=== PATIENT | male | born 1945 | race Caucasian/White ===

== ENCOUNTER 2018-01-20 05:59 | Outpatient (CLI) | payer MEDICARE, OTHER ==
[~2018-01-20] VITALS: Ht 190.5 cm; Wt 115.2 kg
[2018-01-20] MEDS ORDERED: MELO15TA39 PO (15:56)
[2018-01-20] MEDS ORDERED: METO-370 PO (15:56)
[2018-01-20] MEDS ORDERED: ASPI-999 PO (15:56)
[2018-01-20] MEDS ORDERED: CANA300T PO (15:56)
[2018-01-20] MEDS ORDERED: LIPA1CAP2 PO (15:56)
[2018-01-20] MEDS ORDERED: MULT-228 PO (15:56)
[2018-01-20] MEDS ORDERED: MULT-517 PO (15:56)
[2018-01-20] MEDS ORDERED: FLUC150T2 PO (15:56)
[2018-01-20] MEDS ORDERED: METF500T5 PO (15:56)
[2018-01-20] MEDS ORDERED: INSU100V5 SQ (15:56)
[2018-01-20] MEDS ORDERED: MAGN500C15 PO (15:56)
[2018-01-20] MEDS ORDERED: SITA100T12 PO (15:56)
[2018-01-20] MEDS ORDERED: CYAN1TAB26 PO (15:56)
[2018-01-20] MEDS ORDERED: NIAC500T24 PO (15:56)
[2018-01-20] MEDS ORDERED: INSU100V31 IJ (15:56)
== END 2018-01-20 16:15 ==
LOC: PREOP 05:59
PROVIDERS: ATTEND Urology
DX: Z01.818 Encounter for other preprocedural examination (principal)

== ENCOUNTER 2018-01-22 06:25 | Day surgery (SDC) | payer MEDICARE, OTHER ==
[~2018-01-22] VITALS: Ht 190.5 cm; Wt 115.2 kg
[~2018-01-22 06:25] MED LIST: ASPI-999 PO; CANA300T PO; CYAN1TAB26 PO; FLUC150T2 PO; INSU100V31 IJ; INSU100V5 SQ; LIPA1CAP2 PO; MAGN500C15 PO; MELO15TA39 PO; METF500T5 PO; METO-370 PO; MULT-228 PO; MULT-517 PO; NIAC500T24 PO; SITA100T12 PO
[2018-01-22 06:50] VITALS: BP 127/88
--- NOTE | 2018-01-22 06:52 | Progress Note-Pre Operative ---
Pre-Operative Progress Note H&P Reviewed The H&P was reviewed, patient examined and no changes noted. Date Seen by Provider: January 22, 2018 Time Seen by Provider: 06:51 Date H&P Reviewed: January 22, 2018 Time H&P Reviewed: 06:51 Pre-Operative Diagnosis: BPH WITH PROSTATISM REFRACTORY TO MEDICAL TREATMENT HERMELINDA MAKI MD January 22, 2018 6:52 am
[2018-01-22] MEDS ORDERED: cefTRIAXone 1 GM (ROCEPHIN) VIAL ONE (06:55)
[2018-01-22] MEDS ORDERED: NS (IVPB) 50 ML ONE (06:55)
[2018-01-22] MEDS ORDERED: CATHETER FLUSH 10 ML SYR IV PRN (07:15)
[2018-01-22] MEDS ORDERED: cefTRIAXone INJECTION 1,000 MG in NS (IVPB) 50 ML IV ONE (07:15)
[2018-01-22] MEDS: LACTATED RINGERS 1,000 ML IV PRN ×2 (07:16→08:23)
[2018-01-22 07:19] LABS: BASOPHILS % (AUTO) 0 % (0-10); EOSINOPHILS # (AUTO) 0.3 10^3/uL (0.0-0.3); EOSINOPHILS % (AUTO) 6 % (0-10); HEMATOCRIT 42 % (40-54); HEMOGLOBIN 14.1 G/DL (13.3-17.7); LYMPHOCYTES # (AUTO) 0.7 X 10^3 (1.0-4.0); LYMPHOCYTES % (AUTO) 13 % (12-44); MEAN CORPUSCULAR HEMOGLOBIN 31 PG (25-34); MEAN CORPUSCULAR HGB CONC 34 G/DL (32-36); MEAN CORPUSCULAR VOLUME 93 FL (80-99); MEAN PLATELET VOLUME 10.2 FL (7.4-10.4); MONOCYTES # (AUTO) 0.7 X 10^3 (0.0-1.0); MONOCYTES % (AUTO) 13 % (0-12); NEUTROPHILS # (AUTO) 3.6 X 10^3 (1.8-7.8); NEUTROPHILS % (AUTO) 68 % (42-75); PLATELET COUNT 130 10^3/uL (130-400); RED BLOOD COUNT 4.49 10^6/uL (4.35-5.85); RED CELL DISTRIBUTION WIDTH 16.1 % (10.0-14.5); WHITE BLOOD COUNT 5.3 10^3/uL (4.3-11.0)
[2018-01-22] MEDS ORDERED: BUPIVACAINE SPINAL 0.75% (SENSORCAINE) 2 ML AMP ONE (08:08)
[2018-01-22] MEDS ORDERED: fentaNYL INJECTION 100 MCG/2 ML AMP ONE (08:12)
[2018-01-22] MEDS ORDERED: proPOfol 200 MG/20 ML (DIPRIVAN) VIAL IV ONE (08:12)
[2018-01-22] MEDS ORDERED: MIDAZOLAM 2 MG/2 ML (VERSED) VIAL ONE (08:12)
[2018-01-22] MEDS ORDERED: LIDOCAINE PF 2% 5 ML (XYLOCAINE) VIAL ONE (08:18)
[2018-01-22] MEDS ORDERED: PHENYLEPHRINE 100 MCG/ML 10 ML (ANESTHESIA) SYR ONE (09:19)
--- NOTE | 2018-01-22 09:26 | Progress Note-Post Operative ---
Post-Operative Progess Note Surgeon (s)/Boat Ride Operator (s) Surgeon HERMELINDA MAKI MD Boat Ride Operator: N/A Pre-Operative Diagnosis BPH WITH PROSTATISM REFRACTORY TO MEDICAL TREATMENT Post-Operative Diagnosis SAME Procedure & Operative Findings Date of Procedure 01/22/18 Procedure Performed/Findings TURP Anesthesia Type SPINAL Estimated Blood Loss Estimated blood loss (mL): 75CC Specimens/Packing Specimens Removed PROSTATE CHIPS Packing: N/A HERMELINDA MAKI MD January 22, 2018 9:26 am
[2018-01-22] MEDS ORDERED: MILK OF MAGNESIA 400 MG/5 ML 30 ML UDC PO PRN (09:30)
[2018-01-22] MEDS ORDERED: ZOLPIDEM 5 MG (AMBIEN) TAB PO PRN (09:30)
[2018-01-22] MEDS ORDERED: BELLADONNA ALK/OPIUM (B & O) 30 MG SUPP PR PRN (09:30)
[2018-01-22] MEDS ORDERED: ONDANSETRON 4 MG/2 ML (SDV) Z0FRAN IVP PRN (09:45)
[2018-01-22] MEDS ORDERED: HYDROmorphone 1 MG/ML (DILAUDID) 1 ML SYRINGE IV PRN (09:45)
[2018-01-22] MEDS: LACTATED RINGERS 1,000 ML IV SCH ×4 (11:04→20:16)
[2018-01-22 12:00] VITALS: BP 116/60
--- NOTE | 2018-01-22 13:40 | Anesthesia-General Post-Op ---
General Patient Condition Mental Status/LOC: Same as Preop Cardiovascular: Satisfactory Nausea/Vomiting: Absent Respiratory: Satisfactory Pain: Controlled Complications: Absent Post Op Complications Complications None Follow Up Care/Instructions Patient Instructions None needed. Anesthesia/Patient Condition Patient Condition Patient is doing well, no complaints, stable vital signs, no apparent adverse anesthesia problems. No complications reported per nursing. MARK HAMILTON CRNA January 22, 2018 13:40
--- NOTE | 2018-01-22 13:42 | Anesthesia-Regional Post-Op ---
Regional Patient Condition Mental Status: Alert, Oriented x3 Circulation: Same as Pre-Op Headache: Absent Sensation: Full Recovery Motor Block: Absent Post Op Complications Complications None Follow Up Care/Instructions Patient Instructions None needed. Anesthesia/Patient Condition Patient is doing well, no complaints, stable vital signs, no apparent adverse anesthesia problems. No complications reported per nursing. MARK HAMILTON CRNA January 22, 2018 13:42
[2018-01-22] MEDS ORDERED: CYAN10006 PO (14:18)
[2018-01-22] MEDS ORDERED: FA/M1TAB29 PO (14:18)
[2018-01-22] MEDS ORDERED: PEDI18TA2 PO (14:18)
[2018-01-22] MEDS ORDERED: METO50TA15 PO (14:18)
[2018-01-22] MEDS ORDERED: INSU100I14 SQ (14:18)
[2018-01-22] MEDS ORDERED: NIAC1CAP PO (14:18)
[2018-01-22] MEDS ORDERED: ASPI-808 PO (14:18)
[2018-01-22] MEDS ORDERED: METF-760 PO (14:18)
[2018-01-22] MEDS ORDERED: CREON PO (14:18)
[2018-01-22] MEDS ORDERED: PATIENT MAY USE OWN MEDS, ALL MC SCH (15:30)
[2018-01-22] MEDS ORDERED: INSULIN ASPART SQ SCH (16:00)
[2018-01-22 16:16] VITALS: BP 100/59
[2018-01-22] MEDS: metFORMIN XR 500 MG (GLUCOPHAGE XR) TAB PO SCH (17:42)
--- NOTE | 2018-01-22 18:07 | OPERATIVE REPORT ---
DATE OF SERVICE: 01/22/2018 PREOPERATIVE DIAGNOSIS: Benign prostatic hypertrophy, refractory to medical treatment. POSTOPERATIVE DIAGNOSIS: Benign prostatic hypertrophy, refractory to medical treatment. OPERATION PERFORMED: Transurethral resection of the prostate. SURGEON: Hermelinda Maki MD ANESTHESIA: Spinal. COMPLICATIONS: None. DESCRIPTION OF PROCEDURE: Under satisfactory spinal anesthesia, the patient in lithotomy position, genitalia were prepped and draped in usual sterile fashion. Urethra was dilated with Bjorn sound to accommodate the 25-Occitan Petersen resectoscope. Again visualized the trilobar enlargement of the prostate with bladder neck obstruction and trabeculation. I first resected the median lobe. I leveled this completely to the level of the veru. Then, I resected the roof from 1 to 11 o'clock position and then the lateral lobe and finally, the apical tissue. Bleeders were cauterized as the resection was proceeding. The capsule was visualized at many points as hemostasis was adequate. Resection was satisfactory. Cystoscopy confirmed intact ____ ureteric orifices. Veru and sphincter with good reflux. Prostatic chips were evacuated. The resectoscope was removed and a 22 3-way 30 mL balloon catheter was inserted in the bladder, the balloon inflated to 30 mL, connected to continuous bladder irrigation with return of which was clear on traction. Estimated blood loss was 75 mL, none of which was replaced. The patient tolerated the procedure and anesthesia well and was sent to recovery room in stable condition. Job ID: [id number] DocumentID: [id number] Dictated Date: 01/22/2018 09:34:29 Loss Prevention/Safety District Manager Date: 01/22/2018 18:06:51 Dictated By: HERMELINDA MAKI MD
[2018-01-22 20:00] VITALS: BP 108/66
[2018-01-22] MEDS: DOCUSATE SODIUM 100 MG (COLACE) CAP PO SCH (20:59)
[2018-01-22] MEDS ORDERED: NON-FORMULARY MEDICATION 1 EA EA (Metformin HCl (Metformin HCl ER) 1,000 MG) PO SCH (21:00)
[2018-01-22] MEDS ORDERED: NON-FORMULARY MEDICATION 1 EA EA (Metoprolol Tartrate 50 MG) PO SCH (21:00)
[2018-01-22] MEDS ORDERED: inSUlin DETERMIR 1 UNIT/0.01 ML (LEVEMIR) CHARGE PER UNIT SQ SCH (21:00)
[2018-01-22] MEDS ORDERED: NON-FORMULARY MEDICATION 1 EA EA (Meloxicam 15 MG) PO SCH (21:00)
[2018-01-22] MEDS ORDERED: MELOXICAM 15 MG TAB PO SCH (21:00)
[2018-01-22] MEDS ORDERED: inSUlin DETERMIR 1000 UNITS/10 ML VIAL (LEVEMIR) SQ SCH (21:00)
[2018-01-22] MEDS: meTOprolol TARTRATE 50 MG (LOPRESSOR) TAB PO SCH (21:13)
[2018-01-23] VITALS: BP 117/63
[2018-01-23 05:00] VITALS: BP 106/71
[2018-01-23] MEDS: inSUlin ASPART (NovoLOG) 1 UNIT/0.01 ML (CHARGE PER UNIT) SC SCH ×2 (05:17→11:21)
[2018-01-23] MEDS: metFORMIN XR 500 MG (GLUCOPHAGE XR) TAB PO SCH (05:17)
[2018-01-23] MEDS ORDERED: MULTIVIT W/MINERALS TAB (THERAGRAN M) PO SCH (07:00)
[2018-01-23 08:00] VITALS: BP 98/50
[2018-01-23] MEDS ORDERED: MAGNESIUM OXIDE (MAG-OX)400 MG TAB PO SCH (08:00)
[2018-01-23] MEDS: DOCUSATE SODIUM 100 MG (COLACE) CAP PO SCH (08:30)
[2018-01-23] MEDS: meTOprolol TARTRATE 50 MG (LOPRESSOR) TAB PO SCH (08:30)
[2018-01-23] MEDS ORDERED: [UNRECOGNIZED DRUG - OTHER] PO SCH (09:00)
[2018-01-23] MEDS ORDERED: CYANOCOBALAMIN 1,000 MCG (VITAMIN B-12) TABLET PO SCH (09:00)
[2018-01-23] MEDS ORDERED: NON-FORMULARY MEDICATION 1 EA EA (Magnesium Oxide (Magnesium) 500 MG) PO SCH (09:00)
[2018-01-23] MEDS ORDERED: CREON PO SCH (09:00)
[2018-01-23] MEDS ORDERED: NON-FORMULARY MEDICATION 1 EA EA (Sitagliptin Phosphate (Januvia) 100 MG) PO SCH (09:00)
[2018-01-23] MEDS ORDERED: NON-FORMULARY MEDICATION 1 EA EA (Pedi Mv No.79/Ferrous Fumarate (Flintstones with Iron Ta PO SCH (09:00)
[2018-01-23] MEDS ORDERED: LINAGLIPTIN (TRADJENTA) 5 MG TABLET PO SCH (09:00)
[2018-01-23] MEDS ORDERED: NON-FORMULARY MEDICATION 1 EA EA (Canagliflozin (Invokana) 300 MG) PO SCH (09:00)
[2018-01-23] MEDS ORDERED: LEVOFLOXACIN 500 MG/100 ML IV 100 ML IV ONE (09:30)
[2018-01-23] MEDS: LACTATED RINGERS 1,000 ML IV SCH ×2 (10:50)
--- NOTE | 2018-01-23 12:26 | Progress Note-Urology ---
Progress Note-Urology Progress Notes/Assess & Plan Progress/Assessment & Plan DOING WELL. URINE CLEAR. DC [facility]SON AND IVF AND PATIENT Final Diagnosis BPH HERMELINDA MAKI MD January 23, 2018 12:26 pm
--- NOTE | 2018-01-23 12:30 | Discharge Inst-Urology ---
Discharge Inst-Urology Discharge Medications New, Converted, or Re-newed RX: RX on Chart Patient Instructions/Follow Up Plan Please make appointment to been seen in office NEXT weeks, rest till then Keep bowels soft and moving Increase oral fluids for 48 hours and then as needed. Diet and Activity as tolerated. If questions or concerns contact your physician Or seek help at emergency department. HERMELINDA MAKI MD January 23, 2018 12:30 pm
[2018-01-25] MEDS ORDERED: FLUCONAZOLE 150 MG PO SCH (15:00)
[2018-01-25] MEDS ORDERED: fluCOnazole (DIFLUCAN) 100 MG TAB PO SCH (17:00)
== END 2018-01-23 12:50 | disposition home or self-care (01) ==
LOC: SDC 06:25 → 4TH 10:40 → SDC 01-23 12:50
PROVIDERS: ATTEND Urology
DX: N40.0 Benign prostatic hyperplasia without lower urinary tract symptoms (principal); I48.91 Unspecified atrial fibrillation; I10 Essential (primary) hypertension; E11.43 Type 2 diabetes mellitus with diabetic autonomic (poly)neuropathy; G47.33 Obstructive sleep apnea (adult) (pediatric); Z79.82 Long term (current) use of aspirin; Z79.4 Long term (current) use of insulin; Z79.899 Other long term (current) drug therapy
CPT/HCPCS: 36415; 82962; 85025; 86850; 86900; 86901; 87081; 88305; 94664